=== PATIENT | male | born 1980 | race African-American/Black ===

== ENCOUNTER 2019-07-22 18:46 | Emergency (ER) | payer OTHER ==
[~2019-07-22] VITALS: Ht 188 cm; Wt 81.7 kg
[2019-07-22 18:47] VITALS: BP 139/88
== END 2019-07-22 19:08 | disposition left against medical advice (07) ==
LOC: M.ERS 18:46
DX: Z53.21 Procedure and treatment not carried out due to patient leaving prior to being seen by health care provider (principal)